=== PATIENT | male | born 1995 | race Caucasian/White ===

== ENCOUNTER 2018-03-20 23:09 | Emergency (ER) | payer SELFPAY ==
[~2018-03-20] VITALS: Ht 180.3 cm; Wt 63.8 kg
[2018-03-20 23:15] VITALS: BP 132/85
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
== END 2018-03-21 00:10 | disposition home or self-care (01) ==
LOC: ER 23:09
DX: S39.012A Strain of muscle, fascia and tendon of lower back, initial encounter (principal); S29.012A Strain of muscle and tendon of back wall of thorax, initial encounter; M25.552 Pain in left hip; M25.551 Pain in right hip; M25.562 Pain in left knee; M25.561 Pain in right knee; M25.572 Pain in left ankle and joints of left foot; M25.571 Pain in right ankle and joints of right foot; M79.672 Pain in left foot; M79.671 Pain in right foot; V09.9XXA Pedestrian injured in unspecified transport accident, initial encounter; Y93.02 Activity, running; Y92.488 Other paved roadways as the place of occurrence of the external cause; Y99.8 Other external cause status
CPT/HCPCS: 72072; 72100; 99284